=== PATIENT | male | born 1995 ===

== ENCOUNTER 2022-06-08 23:25 | Outpatient (REF) | payer SELFPAY ==
[2022-06-08 21:17] LABS: Anion Gap 6.7 mmol/L (3-11); BUN 18 mg/dL (7-18); CO2 30.3 mmol/L (21.0-32.0); Calculated LDL 156 mg/dL (<100); Chloride 104 mmol/L (98-107); Cholesterol 238 mg/dL (<200); Estimated GFR 107.12 (mL/min/1.73m2); Glucose 96 mg/dL (74-106); HDL Cholesterol 35 mg/dL (40-60); Potassium 3.8 mmol/L (3.5-5.1); Sodium 141 mmol/L (136-145); TSH 1.59 uIU/mL (0.36-3.74); Triglyceride 237 mg/dL (<150)
== END 2022-06-08 23:26 | disposition home or self-care (01) ==
LOC: NCHCN 23:25
PROVIDERS: Visit Provider Internal Medicine
DX: Z00.00 Encounter for general adult medical examination without abnormal findings (principal)
CPT/HCPCS: 80048; 80061; 84443